=== PATIENT | male | born 2000 | race Caucasian/White ===

== ENCOUNTER 2020-07-24 15:37 | Emergency (ER) | payer SELFPAY ==
[2020-07-24] MEDS ORDERED: BUPIVACAINE 0.5% PF 10 ML VIAL ONE (16:43)
[2020-07-24] MEDS ORDERED: LIDOCAINE 1% W/EPI 1:100,000 MDV 20 ML VIAL ONE (16:43)
[2020-07-24] MEDS ORDERED: CLINDAMYCIN 600MG/D5W 600 MG/50 ML BAG IV ONE (16:43)
[2020-07-24] MEDS ORDERED: SMZ./TMP. 800/160 MG TABLET ONE (16:54)
[2020-07-24 17:00] LABS: Absolute Lymphocytes (CBC) 2.3 K/uL (0.7-4.9); Basophils % 0.8 % (0-1.3); Hematocrit 45.7 % (39.6-49.0); Lymphocytes % 19.4 % (15.3-44.8); MPV 8.8 fL (7.6-11.3); RBC Red Blood Cell Count 5.72 M/uL (4.33-5.43)
[2020-07-24] MEDS ORDERED: ONDANSETRON 4 MG/2 ML VIAL ONE (17:05)
[2020-07-24] MEDS ORDERED: MORPHINE 4 MG/ML SYR ONE (17:05)
[2020-07-24 17:16] LABS: BUN Blood Urea Nitrogen 16 mg/dL (7-18); Bicarbonate 28 mmol/L (21-32); Glucose Level 114 mg/dL (74-106); Potassium 3.8 mmol/L (3.5-5.1); Sodium Level 140 mmol/L (136-145)
--- NOTE | 2020-07-24 17:47 | EDPHYS ---
Physician Documentation [facility] Name: Vega Moran Age: 19 yrs Sex: Male : 2000 Arrival Date: 07/24/2020 Time: 15:39 Bed 24 Private MD: ED Physician Jonathon De La Paz HPI: 07/24 16:35 This 19 yrs old Male presents to ER via Ambulatory with complaints of Skin cp Sore(s). 16:35 The patient or guardian complains of an abscess, moderate-sized. The complaints affect cp the lateral aspect right upper arm. Onset: The symptoms/episode began/occurred 1.5 week(s) ago. Associated signs and symptoms: Pertinent positives: warmth, Pertinent negatives: fever, numbness. Historical: - Allergies: 15:46 No Known Allergies; ll1 - PSHx: 15:46 r leg repair; ll1 - Immunization history:: Last tetanus immunization: unknown, Flu vaccine is not up to date. - Social history:: Smoking status: Reported history of juuling and/or vaping. Patient uses alcohol, only on a social basis. Patient/guardian denies using street drugs. ROS: 16:40 Skin: Positive for abscess, of the lateral aspect right upper arm. cp Exam: 16:45 Constitutional: The patient appears in no acute distress, alert, awake, non-toxic, well cp developed, well nourished, uncomfortable. 16:45 Head/Face: Normocephalic, atraumatic. cp 16:45 Chest/axilla: Inspection: normal. 16:45 Cardiovascular: Rate: normal. 16:45 Respiratory: the patient does not display signs of respiratory distress, Respirations: normal, no use of accessory muscles, labored breathing, is not present. 16:45 Skin: abscess, that is moderate sized, of the lateral aspect right upper arm, with induration, with surrounding cellulitis, that is moderate. Vital Signs: 15:44 BP 147 / 102; Pulse 87; Resp 18; Temp 99.6; Pulse Ox 98% ; Pain 8/10; ll1 Procedures: 17:42 I \T\ D: Incision and drainage was performed for an abscess of the lateral aspect right cp upper arm Prepped with Betadine, Anesthetized with 10 ccs of 50/50 mixture 1% lidocaine with epi and 0.5% marcaine. Incised with #11 blade. Drained moderate amount purulent fluid. Cultures obtained. Packed with iodoform gauze, Dressing: sterile 4x4 gauze, the patient tolerated the procedure well. MDM: 16:36 Patient medically screened. cp 17:00 Differential diagnosis: abscess, cellulitis. cp 17:45 Data reviewed: vital signs, nurses notes. cp 17:45 Counseling: I had a detailed discussion with the patient and/or guardian regarding: the cp historical points, exam findings, and any diagnostic results supporting the discharge/admit diagnosis, the need for outpatient follow up, a general surgeon, to return to the emergency department if symptoms worsen or persist or if there are any questions or concerns that arise at home. Response to treatment: the patient's symptoms have markedly improved after treatment, and as a result, I will discharge patient. 07/24 16:31 Order name: CBC with Diff; Complete Time: 17:21 cp 07/24 16:31 Order name: BMP; Complete Time: 17:21 cp 07/24 16:31 Order name: Wound Culture 07/24 16:31 Order name: I\T\D Setup; Complete Time: 16:40 cp 07/24 16:31 Order name: IV; Complete Time: 16:59 cp 07/24 17:42 Order name: Wound dressing; Complete Time: 18:06 cp 07/24 18:00 Order name: Sling; Complete Time: 18:06 cp Administered Medications: 16:58 Drug: Marcaine (0.5 %) 10 ml Volume: 10 ml; Route: Infiltration; hb 16:58 Drug: morphine 4 mg Route: IVP; Site: left antecubital; hb 17:30 Follow up: Response: No adverse reaction hb 16:58 Drug: Zofran (Ondansetron) 4 mg Route: IVP; Site: left antecubital; hb 17:30 Follow up: Response: No adverse reaction hb 16:59 Drug: Clindamycin 600 mg Route: IVPB; Infused Over: 30 mins; Site: left antecubital; hb 17:30 Follow up: IV Status: Completed infusion; IV Intake: 50ml hb 17:35 Follow up: Response: No adverse reaction hb 16:59 Drug: Bactrim (160 mg-800 mg (DS) 1 tablet Route: PO; hb 17:44 Follow up: Response: No adverse reaction hb 16:59 Drug: Lidocaine-Epinephrine -1%: (1:100,000) 10 ml Volume: 20 ml; Route: Infiltration; hb Disposition: 18:00 Chart complete. cp Disposition: 07/24/20 17:46 Discharged to Home. Impression: Cutaneous abscess of right upper limb - right upper arm, Cellulitis of right upper limb. - Condition is Stable. - Discharge Instructions: Skin Abscess, Cellulitis, Adult, Incision and Drainage. - Prescriptions for Clindamycin HCl 300 mg Oral Capsule - take 1 capsule by ORAL route every 6 hours for 10 days; 40 capsule. Ibuprofen 800 mg Oral Tablet - take 1 tablet by ORAL route every 8 hours As needed take with food; 30 tablet. Tylenol- Codeine #3 300-30 mg Oral Tablet - take 2 tablets by ORAL route every 6 hours As needed; 15 tablet. Bactrim DS 800- 160 mg Oral Tablet - take 1 tablet by ORAL route every 12 hours for 10 days; 20 tablet. - Medication Reconciliation Form, Thank You Letter, Antibiotic Education, Prescription Opioid Use form. - Follow up: Chidi Mcarthur MD; When: 1 - 2 days; Reason: Wound Recheck. - Problem is new. - Symptoms have improved. Addendum: 07/25/2020 19:50 Co-signature as Attending Physician, Jonathon De La Paz MD I agree with the assessment and k dr plan of care. Signatures: Dispatcher [employer] EDWY Jonathon De La Paz MD MD [facility] Nahum Cano PA PA Jess Ibarra RN RN Rubina Stovall RN RN ll1 Corrections: (The following items were deleted from the chart) 07/24 18:09 17:46 07/24/2020 17:46 Discharged to Home. Impression: Cutaneous abscess of right upper hb limb - right upper arm; Cellulitis of right upper limb. Condition is Stable. Forms are Medication Reconciliation Form, Thank You Letter, Antibiotic Education, Prescription Opioid Use. Follow up: Chidi Mcarthur; When: 1 - 2 days; Reason: Wound Recheck. Problem is new. Symptoms have improved. cp
--- NOTE | 2020-07-24 17:47 | ER ---
Nurse's Notes [facility] Name: Vega Moran Age: 19 yrs Sex: Male : 2000 Arrival Date: 07/24/2020 Time: 15:39 Bed 24 Private MD: Diagnosis: Cutaneous abscess of right upper limb-right upper arm;Cellulitis of right upper limb Presentation: 07/24 15:44 Chief complaint: Patient states: Abscess with surrounding cellulitis for 1 week, ll1 getting worse. 2 other sites have started to heal. No fever at home,. Coronavirus screen: Client denies travel out of the [place] in the last 14 days. At this time, the client does not indicate any symptoms associated with coronavirus-19. Ebola Screen: Patient denies travel to an Ebola-affected area in the 21 days before illness onset. Initial Sepsis Screen: Does the patient meet any 2 criteria? No. Patient's initial sepsis screen is negative. Risk Assessment: Do you want to hurt yourself or someone else? Patient reports no desire to harm self or others. Onset of symptoms was July 18, 2020. 15:44 Method Of Arrival: Ambulatory ll1 15:44 Acuity: DIANA 4 ll1 16:30 Acuity: DIANA 3 hb Historical: - Allergies: 15:46 No Known Allergies; ll1 - PSHx: 15:46 r leg repair; ll1 - Immunization history:: Last tetanus immunization: unknown, Flu vaccine is not up to date. - Social history:: Smoking status: Reported history of juuling and/or vaping. Patient uses alcohol, only on a social basis. Patient/guardian denies using street drugs. Screenin:30 Abuse screen: Denies threats or abuse. Denies injuries from another. Nutritional hb screening: No deficits noted. Tuberculosis screening: No symptoms or risk factors identified. Fall Risk None identified. Assessment: 16:28 General: Appears in no apparent distress. uncomfortable, Behavior is calm, cooperative. hb Pain: Pain currently is 8 out of 10 on a pain scale. Neuro: Level of Consciousness is awake, alert, obeys commands, Oriented to person, place, time, situation. Cardiovascular: Capillary refill < 3 seconds Patient's skin is warm and dry. Respiratory: Respiratory effort is even, unlabored, Respiratory pattern is regular, symmetrical. GI: No signs and/or symptoms were reported involving the gastrointestinal system. : No signs and/or symptoms were reported regarding the genitourinary system. EENT: No signs and/or symptoms were reported regarding the EENT system. Derm: Skin is pink, warm \T\ dry. Abscess located on anterior aspect of right shoulder is x 2 is hot to touch, is red, is raised. Musculoskeletal: No signs and/or symptoms reported regarding the musculoskeletal system. 17:25 Reassessment: Patient appears in no apparent distress at this time. Patient and/or hb family updated on plan of care and expected duration. Pain level reassessed. Patient is alert, oriented x 3, equal unlabored respirations, skin warm/dry/pink. Vital Signs: 15:44 BP 147 / 102; Pulse 87; Resp 18; Temp 99.6; Pulse Ox 98% ; Pain 8/10; ll1 ED Course: 15:39 Patient arrived in ED. mr 15:45 Triage completed. ll1 15:46 Arm band placed on. ll1 16:16 Jonathon De La Paz MD is Attending Physician. kdr 16:16 Nahum Cano PA is PHCP. cp 16:17 Jonathon De La Paz MD is Attending Physician. kdr 16:28 Jess Ibarra, SHEREEN is Primary Nurse. hb 16:30 Patient has correct armband on for positive identification. Bed in low position. Call hb light in reach. 17:45 Chidi Mcarthur MD is Referral Physician. cp 17:58 Dressings: non-adherent dressing x 1 anterior aspect of right shoulder 4X4s X 1; hb anterior aspect of right shoulder. 18:08 No provider procedures requiring assistance completed. IV discontinued, intact, hb bleeding controlled, No redness/swelling at site. Administered Medications: 16:58 Drug: Marcaine (0.5 %) 10 ml Volume: 10 ml; Route: Infiltration; hb 16:58 Drug: morphine 4 mg Route: IVP; Site: left antecubital; hb 17:30 Follow up: Response: No adverse reaction hb 16:58 Drug: Zofran (Ondansetron) 4 mg Route: IVP; Site: left antecubital; hb 17:30 Follow up: Response: No adverse reaction hb 16:59 Drug: Clindamycin 600 mg Route: IVPB; Infused Over: 30 mins; Site: left antecubital; hb 17:30 Follow up: IV Status: Completed infusion; IV Intake: 50ml hb 17:35 Follow up: Response: No adverse reaction hb 16:59 Drug: Bactrim (160 mg-800 mg (DS) 1 tablet Route: PO; hb 17:44 Follow up: Response: No adverse reaction hb 16:59 Drug: Lidocaine-Epinephrine -1%: (1:100,000) 10 ml Volume: 20 ml; Route: Infiltration; hb Intake: 17:30 IV: 50ml; Total: 50ml. hb Outcome: 17:46 Discharge ordered by MD. cp 18:08 Discharged to home ambulatory. hb 18:08 Condition: stable 18:08 Discharge instructions given to patient, Instructed on discharge instructions, follow up and referral plans. medication usage, wound care, Demonstrated understanding of instructions, follow-up care, medications, wound care, Prescriptions given X 4. 18:09 Patient left the ED. hb Addendum: 07/28/2020 07:24 Addendum: Culture Results: Positive wound culture. No further action required. Bacteria e b sensitive to prescribed antibiotic. Signatures: Jonathon De La Paz MD MD [facility] Bety Good Corey, PA PA Jess Torres, SHEREEN RN Leonor Diaz Lynsay RN RN ll1 Corrections: (The following items were deleted from the chart) 07/24 15:46 15:44 Acuity: DIANA 3 ll1 ll1
[2020-07-29 02:12] VITALS: BP 147/102; TEMP 99.6; O2SAT 98
== END 2020-07-24 18:09 | disposition home or self-care (01) ==
LOC: ER 15:37
PROC: 0J9D0ZZ Drainage of Right Upper Arm Subcutaneous Tissue and Fascia, Open Approach (ICD-10-PCS; principal; 2020-07-24)
DX: L03.113 Cellulitis of right upper limb (principal); Z87.891 Personal history of nicotine dependence
CPT/HCPCS: 36415; 80048; 85025; 87070; 87077; 87186; 87205; 96365; 96375; 99283; J2405